=== PATIENT | female | born 1975 | race Caucasian/White ===

== ENCOUNTER 2017-05-16 00:40 | Emergency (ER) | payer OTHER ==
[~2017-05-16] VITALS: Ht 149.9 cm; Wt 81.3 kg
[2017-05-16 00:42] VITALS: TEMP 36.7; Ht 149.9 cm; Wt 81.3 kg
[2017-05-16] MEDS ORDERED: GELATIN SPONGE 12-7MM ONE (00:54)
--- NOTE | 2017-05-16 01:50 | EMERGENCY ROOM VISIT NOTE ---
History Report prepared by Ibisibgermaine: Rey Morales Under the Supervision of: Dr. Michelle Murray D.O. First contact with patient: 00:46 Chief Complaint: LACERATION/CUT (SUT/DERMABOND) Stated Complaint: BLEEDING,CUT FINGER Nursing Triage Summary: Pt reports she slipped and cut her right thumb on a glass door. It happened 30 minutes ago. History of Present Illness The patient is a 41 year old female who presents to the Emergency Room with complaints of a right thumb laceration. She states that she was running to her front door when she slipped and accidently crashed her hand through a window. She states that this event occurred about 30 minutes prior to arrival. The patient is not on any blood thinners. She denies any other injuries. She denies any recent alcohol use. Source of History: patient Onset: 30 minutes prior to arrival Position: finger(s) (right thumb) Quality: other (laceration) Review of Systems See HPI for pertinent positives & negatives. A total of 6 systems reviewed and were otherwise negative. Past Medical & Surgical Medical Problems: (1) No Known Active Medical Problems Family History No pertinent family history stated. Social History Smoking Status: Never Smoker Alcohol Use: none Drug Use: none Marital Status: Occupation Status: employed Current/Historical Medications No Active Prescriptions or Reported Meds Allergies Coded Allergies: No Known Allergies (Verified , 05/16/17) Physical Exam Vital Signs Date Time Temp Pulse Resp B/P (MAP) Pulse Ox O2 Delivery O2 Flow Rate FiO2 05/16/17 02:10 84 18 128/72 99 05/16/17 00:42 36.7 94 16 139/86 100 Room Air Physical Exam HEENT: Head - normocephalic and atraumatic Pupils are equal, round, and reactive to light. Extraocular eye muscles are intact, and sclera are anicteric. Nose - moist nasal mucosa without discharge. Mouth - moist buccal mucosa. Oropharynx is nonerythematous and there is no tonsillar exudate or edema noted. Neck: Supple; no pain to palpation over the posterior cervical spine.. Heart: Regular rate and rhythm. There is a normal S1 and S2 with no murmurs, clicks, or gallops appreciated. Lungs: Clear to auscultation bilaterally with no wheezes, rales, or rhonchi. Abdomen: Soft, completely nontender, nondistended, with good bowel sounds. There are no palpable pulsatile masses or hepatosplenomegaly. There is no guarding, rigidity, or rebound noted. Extremities: Skin avulsion over the lateral aspect of the right thumb. No evidence of cyanosis, clubbing, or edema. There are easily palpable peripheral pulses. Skin: warm and dry with good turgor and no rashes. Medical Decision & Procedures ED Course 0049: Past medical records reviewed. The patient was evaluated in room B3B. A complete history and physical exam was performed. 0055: I applied Surgicel with a pressure bandage to the patient's right thumb. She will hold it in an elevated position for 20 minutes. 0135: Upon reevaluation, the patient is resting comfortably. The bandage was removed and there was no blood about the Surgicel. This was left in place and rewrapped. The patient will be discharged home to keep the Surgicel and bandage in place for the next 24 hours. She may then remove it and soak off the Surgicel. I discussed findings and results with her. She verbalized agreement of the treatment plan. The patient was discharged home. Medical Decision This is a 41-year-old female patient who accidentally put her hand through a glass window of the door. The patient did not fall to the ground or injure herself in any other way. She suffered a skin avulsion to left thumb. There was nothing that could be sutured. The wound continued to bleed and Surgicel was placed. This created good hemostasis. Medication Reconcilliation Current Medication List: was personally reviewed by me Blood Pressure Screening Patient's blood pressure: Elevated blood pressure Blood pressure disposition: Elevated BP felt to be situational Impression Primary Impression: Laceration of right thumb Scribe Attestation The scribe's documentation has been prepared under my direction and personally reviewed by me in its entirety. I confirm that the note above accurately reflects all work, treatment, procedures, and medical decision making performed by me. Departure Information Dispostion Home / Self-Care Prescriptions No Active Prescriptions or Reported Meds Referrals No Doctor, Assigned (PCP) Forms HOME CARE DOCUMENTATION FORM, IMPORTANT VISIT INFORMATION Patient Instructions ED Laceration All, My [facility] Additional Instructions Rest with your right hand elevated. Leave surgicel in place til tomorrow night then soak it off. Return to the ER if unable to control the bleeding Problem Qualifiers Primary Impression: Laceration of right thumb Encounter type: initial encounter Damage to nail status: without damage Foreign body presence: without foreign body Qualified Codes: S61.011A - Laceration without foreign body of right thumb without damage to nail, initial encounter
[2017-05-16 02:10] VITALS: BP 128/72; PULSE 84; O2SAT 99
== END 2017-05-16 02:13 | disposition home or self-care (01) ==
LOC: C.EDB 00:41
DX: S61.011A Laceration without foreign body of right thumb without damage to nail, initial encounter (principal); W25.XXXA Contact with sharp glass, initial encounter; Y92.9 Unspecified place or not applicable